=== PATIENT | male | born 1960 | race Caucasian/White ===

== ENCOUNTER → 2018-03-08 | Outpatient (CLI) | payer OTHER ==
[~2018-03-08] MED LIST: ALLEGRA180 MG; CLARINEX2.5 MG; COUMADIN 5 MG TA5 M1 PO; CRESTOR10 MG PO; FLEXERIL PO; FLOMAX0.4 MG PO; FLONASE16 GM; KEFLEX500 MG PO; LISINOPRIL-HCT1 EACH; LISINOPRIL10 MG; LUNESTA2 MG; MEDROLDOSEPACK PO; NORCO 5-325 TA1 EACH PO; OMEPRAZOLE20 MG; PAXIL10 MG; PRAVASTATIN SOD10 MG; VIAGRA25 MG PO; XARELTO15 MG PO; XARELTO20 MG PO; [UNRECOGNIZED DRUG - REMARK]
== END ==
LOC: M.RAD 14:42
DX: I89.8 Other specified noninfective disorders of lymphatic vessels and lymph nodes (principal); J15.8 Pneumonia due to other specified bacteria

== ENCOUNTER 2019-02-04 20:36 | Inpatient (IN) | payer OTHER ==
[~2019-02-04] VITALS: Ht 182.9 cm; Wt 110.7 kg
[~2019-02-04 20:36] MED LIST changes: +FLONASE 0.05%50 MCG PO; -FLONASE16 GM
[2019-02-04 20:41] VITALS: BP 160/87
[2019-02-04] MEDS ORDERED: PRINIVIL20 M1 PO (20:45)
[2019-02-04] MEDS ORDERED: CREON DR 36,001 EACH PO (20:47)
[2019-02-04] MEDS ORDERED: VALTREX 500 MG500 M1 PO (20:48)
[2019-02-04] MEDS ORDERED: FLEXERIL PO (20:49)
[2019-02-04 21:01] LABS: ABSOLUTE BASOPHILS 0.1 thou/uL (0.0-0.2); ABSOLUTE EOSINOPHILS 0.3 thou/uL (0.0-0.7); ABSOLUTE LYMPHOCYTES 2.4 thou/uL (0.8-5.3); ABSOLUTE NEUTROPHILS 5.3 thou/uL (1.6-8.1); BASOPHILS 0.7 %; HEMATOCRIT 42.3 % (42.0-52.0); HEMOGLOBIN 14.9 gm/dL (14.0-18.0); LYMPHOCYTES 26.4 %; MCH 32.5 pg (26.0-34.0); MCHC 35.3 g/dL (28.0-37.0); MCV 92.2 fL (80.0-100.0); MONOCYTES 11.1 %; MPV 7.9 fl. (7.2-11.1); NUCLEATED RBCS 0 /100WBC; PLATELET COUNT* 245 thou/uL (150-400); POLYS 58.8 %; RBC 4.59 mil/uL (4.50-6.00); RDW-CV 13.6 % (10.5-14.5)
[2019-02-04 21:10] LABS: CALCIUM 8.9 mg/dL (8.5-10.1); POTASSIUM 3.8 mmol/L (3.5-5.1)
[2019-02-04 21:11] LABS: INR 2.1; PROTIME 20.7 Seconds (9.20-11.50)
[2019-02-04 21:15] LABS: ALBUMIN 3.8 g/dL (3.4-5.0); TOTAL BILIRUBIN 0.2 mg/dL (<0.1-1.0); TOTAL PROTEIN 7.2 g/dL (6.4-8.2)
[2019-02-04 22:25] VITALS: BP 130/106
[2019-02-04 22:29] VITALS: BP 158/92
[2019-02-05 02:05] LABS: URINE BILIRUBIN NEGATIVE (Negative); URINE BLOOD NEGATIVE (Negative); URINE CLARITY CLEAR; URINE COLOR YELLOW; URINE GLUCOSE-RANDOM NEGATIVE (Negative); URINE KETONES NEGATIVE (Negative); URINE LEUKOCYTES-REFLEX NEGATIVE (Negative); URINE NITRITE-REFLEX NEGATIVE (Negative); URINE PROTEIN NEGATIVE (Negative); URINE UROBILINOGEN 0.2 E.U./dl (0.2-1.0)
[2019-02-05 07:42] VITALS: BP 110/56
--- NOTE | 2019-02-05 12:13 | EKG ---
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
[2019-02-05 12:33] LABS: CHOLESTEROL 200 mg/dL (<200); HDL CHOLESTEROL 37 mg/dL (>40); LDL CHOLESTEROL 96 mg/dL (<100); TC:HDL 5.4 Ratio (Not establshd); TRIGLYCERIDE 337 mg/dL (<150); VLDL 67 mg/dL (<40)
[2019-02-05 12:37] LABS: SERUM ASSESSMENT Clear
[2019-02-05 16:21] VITALS: BP 99/52
[2019-02-05 21:00] VITALS: BP 115/62
--- NOTE | 2019-02-06 06:53 | CON ---
[address] [address] CONSULTATION Name: ARRINGTONLEONOR Room: [address] IN .R.#: [id number] Admission: 02/04/19 Attend Phys: Venu Reynoso MD Discharge: Date of : 58 Report #: [id number] THIS REPORT FOR: //name// CC: Tony Reynoso DICTATED BY: Violeta Noyola [facility] DATE OF SERVICE: 02/05/2019 Please note at the time of this dictation, the patient was seen and physically examined by myself. REASON FOR CONSULTATION: Elevated lipase. HISTORY OF PRESENT ILLNESS: This 58-year-old male who presented to the Emergency Room with significant abdominal pain that he was unable to tolerate. He states he finished dinner around 7:30 and shortly after that he started having intense abdominal pain. He did not have any vomiting or diarrhea associated with this. He did initially developed pancreatitis years ago following due to his gallbladder, then later continued to have bouts of pancreatitis after his gallbladder had been removed and was found to have sphincter of Oddi dysfunction and has received several ERCPs in the past. Last time, he had an episode of this was 6-7 years ago. Otherwise, he has been doing very well. The patient recently underwent a colonoscopy, the middle of January and he had some polyps removed at that time. He is scheduled for an outpatient EUS given his history of chronic pancreatitis on 02/14/[address] Espinoza at this time. ALLERGIES: NUBAIN, and ACETAMINOPHEN. MEDICATIONS FROM HOME: Flomax, Creon, Flonase, Coumadin, Prinivil, Valtrex, and Flexeril. 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 PAST SURGICAL HISTORY: Cholecystectomy, tonsillectomy, adenoidectomy, left knee arthroscopic surgery. FAMILY HISTORY: Negative for any GI or female cancers. SOCIAL HISTORY: Denies any tobacco use, alcohol on special occasions. Denies [place] [address] CONSULTATION Name: LEONOR ARRINGTON Room: [address] IN [facility]#: [id number] Admission: 02/04/19 Attend Phys: Venu Reynoso MD Discharge: Date of : 58 Report #: [id number] REVIEW OF SYSTEMS: Twelve-point review of systems is essentially negative except what is mentioned in the HPI. PHYSICAL EXAMINATION: VITAL SIGNS: Temperature 36.9, pulse 80, respirations 18, blood pressure 110/56. HEART: Regular rate and rhythm. LUNGS: Clear. ABDOMEN: Soft, positive bowel sounds in all 4 quadrants with tenderness noted in the upper quadrants. LABORATORY DATA: Hemoglobin is 14.9, white count is 9, platelets 242,000. PT 20.7, INR 2.1, GFR 76. CT shows absent gallbladder, pancreatic duct is dilated at 9 mm. There is no inflammation or stranding noted around the pancreas at this time. Otherwise, essentially negative. IMPRESSION: 1. Abdominal pain. 2. Elevated lipase. 3. Nausea. 4. Anticoagulant therapy secondary to Leiden factor V, warfarin. PLAN: 1. CA 19-9. 2. Clear liquids. 3. Plans for EUS as an outpatient on 02/14/2019. 4. Further recommendations to be made after the above has been noted and continue with pain control. Thank you for allowing us to participate in this patient's care. Please do not hesitate to call with any questions in regard to this consult. Patient with recurrent acute pancreatitis and possibly chronic pancreatitis. The patient was offered ERCP in addition to the EUS for recurrent symptoms and dilated PD. He, however, refused. We also discussed the role of [place] procedure and whipple in the management of chronic pancreatitis. Continue conservative management and proceed with outpatient EUS as scheduled. Otherwise agree with assessment and plan by Violeta Noyola <ELECTRONICALLY SIGNED> By: Lui Marsh MD 02/06/19 [id number] Marsh MD /nt
[2019-02-06 17:00] VITALS: BP 135/67
[2019-02-07 03:08] VITALS: BP 137/70
[2019-02-07 04:32] LABS: HEMATOCRIT 35.1 % (42.0-52.0); MCH 32.5 pg (26.0-34.0); MCHC 34.5 g/dL (28.0-37.0); MCV 94.4 fL (80.0-100.0); MPV 8.1 fl. (7.2-11.1); RBC 3.72 mil/uL (4.50-6.00); RDW-CV 13.8 % (10.5-14.5); WBC 7.8 thou/uL (4.0-11.0)
[2019-02-07 04:41] LABS: HEMOGLOBIN 12.1 gm/dL (14.0-18.0)
[2019-02-07 04:52] LABS: ALBUMIN 2.9 g/dL (3.4-5.0); CREATININE 0.8 mg/dL (0.6-1.3); MAGNESIUM 1.9 mg/dL (1.8-2.4); POTASSIUM 3.7 mmol/L (3.5-5.1); TOTAL BILIRUBIN 0.5 mg/dL (<0.1-1.0); TOTAL PROTEIN 5.8 g/dL (6.4-8.2)
[2019-02-07 08:05] VITALS: BP 145/74
[2019-02-07 16:00] VITALS: BP 139/70
[2019-02-07 21:30] VITALS: BP 120/64
[2019-02-08 03:58] LABS: HEMATOCRIT 36.1 % (42.0-52.0); HEMOGLOBIN 12.5 gm/dL (14.0-18.0); MCH 32.6 pg (26.0-34.0); MCHC 34.6 g/dL (28.0-37.0); MCV 94.1 fL (80.0-100.0); RBC 3.84 mil/uL (4.50-6.00); RDW-CV 13.6 % (10.5-14.5); WBC 7.3 thou/uL (4.0-11.0)
[2019-02-08 04:13] LABS: ALBUMIN 2.9 g/dL (3.4-5.0); CALCIUM 8.5 mg/dL (8.5-10.1); CREATININE 0.7 mg/dL (0.6-1.3); TOTAL BILIRUBIN 0.4 mg/dL (<0.1-1.0); TOTAL PROTEIN 6.1 g/dL (6.4-8.2)
[2019-02-08 08:10] VITALS: BP 137/76
[2019-02-08 15:04] LABS: INR 2.1; PROTIME 21.4 Seconds (9.20-11.50)
[2019-02-08 15:30] VITALS: BP 139/83
[2019-02-08 19:40] VITALS: BP 139/72
[2019-02-09 04:25] VITALS: BP 131/70
[2019-02-09 04:36] LABS: ALBUMIN 2.7 g/dL (3.4-5.0); CREATININE 0.8 mg/dL (0.6-1.3); POTASSIUM 3.6 mmol/L (3.5-5.1); TOTAL BILIRUBIN 0.5 mg/dL (<0.1-1.0); TOTAL PROTEIN 5.8 g/dL (6.4-8.2)
[2019-02-09 08:20] VITALS: BP 140/62
[2019-02-09] MEDS ORDERED: OXYCODONE HCL 55 MG PO (11:52)
[2019-02-09] MEDS ORDERED: PHENERGAN 25 MG25 M1 PO (11:52)
[2019-02-09 12:51] VITALS: BP 140/62
== END 2019-02-09 15:45 | disposition home or self-care (01) | DRG 439 ==
LOC: M.ERS 20:36 → M.3W 21:20 → M.TBA-ER 21:20 → M.3W 22:23
PROVIDERS: Emergency Medicine; Family Medicine; ADMIT Internal Medicine
PROC: 5A09357 Assistance with Respiratory Ventilation, Less than 24 Consecutive Hours, Continuous Positive Airway Pressure (ICD-10-PCS; principal; 2019-02-07)
PROC: 5A09357 Assistance with Respiratory Ventilation, Less than 24 Consecutive Hours, Continuous Positive Airway Pressure (ICD-10-PCS; 2019-02-08)
DX: K85.90 Acute pancreatitis without necrosis or infection, unspecified (principal); D68.51 Activated protein C resistance; E66.01 Morbid (severe) obesity due to excess calories; G47.33 Obstructive sleep apnea (adult) (pediatric); Z90.49 Acquired absence of other specified parts of digestive tract; Z88.8 Allergy status to other drugs, medicaments and biological substances; Z86.718 Personal history of other venous thrombosis and embolism; Z79.01 Long term (current) use of anticoagulants; Z83.49 Family history of other endocrine, nutritional and metabolic diseases; Z68.33 Body mass index [BMI] 33.0-33.9, adult; Z28.21 Immunization not carried out because of patient refusal; Z79.899 Other long term (current) drug therapy